=== PATIENT | female | born 1980 | race Caucasian/White ===

== ENCOUNTER 2024-06-14 09:13 | Outpatient (CLI) | payer OTHER, SELFPAY ==
--- NOTE | ~2024-06-14 | CT_ITS ---
Non-contrast CT scan of the Abdomen Clinical indication: Adrenal disorder Technique: 2.5 mm axial scans were obtained through the abdomen without intravenous or oral contrast . Dose reduction technique was used on this scan by utilizing automated exposure control and iterativ e reconstruction technique. The dose-length product (DLP) was 755.58 mGy-cm. Findings: Images through the lung bases reveal no abnormalities. There is no evidence of renal or ureteral calculi. The kidneys and the ureters are nondilated. The liver, spleen, pancreas, gallbladder, and adrenals appear normal. There is no aortic aneurysm. M inimally enlarged retroperitoneal lymph nodes are present, largest measuring 13 mm in short axis. Visualized bowel loops are unremarkable. No ascites. Impression: Mild retroperitoneal lymphadenopathy, nonspecific. Correlate clinically. Consider follow-up exam and/ or additional workup as indicated. No adrenal abnormality evident. Reviewed, dictated and finalized at [facility]. Impression: Mild retroperitoneal lymphadenopathy, nonspecific. Correlate clinically. Consid er follow-up exam and/or additional workup as indicated. No adrenal abnormality evident.
== END 2024-06-14 09:14 | disposition home or self-care (01) ==
PROVIDERS: PCP Internal Medicine Endocrinology, Diabetes & Metabolism; Visit Provider Internal Medicine Endocrinology, Diabetes & Metabolism
DX: E27.9 Disorder of adrenal gland, unspecified (principal)
CPT/HCPCS: 74150